=== PATIENT | male | born 1970 | race Two or more races ===

== ENCOUNTER 2020-12-28 09:28 | Emergency (ER) | payer MEDICAID, OTHER ==
[~2020-12-28] VITALS: Ht 172.7 cm; Wt 95.3 kg
--- NOTE | 2020-12-28 09:28 | NUR ---
PT BIB [facility] C/O GENERALIZED BODY PAIN S/P ROLLING OFF HIS BED THIS AM. PT IS AAOX4, NOT IN RESPIRATORY DISTRESS, V/S STABLE. KEPT RESTED AND COMFORTABLE. WILL CONTINUE TO MONITOR.
--- NOTE | 2020-12-28 09:34 | NUR ---
AT BEDSIDE FOR EVAL.
[2020-12-28] MEDS ORDERED: ACET-2605 PO (09:54)
[2020-12-28] MEDS ORDERED: AMIO200T5 PO (09:54)
[2020-12-28] MEDS ORDERED: PANT40TA2 PO (09:54)
[2020-12-28] MEDS ORDERED: LACT10SO3 PO (09:54)
[2020-12-28] MEDS ORDERED: ALLO100T PO (09:54)
[2020-12-28] MEDS ORDERED: MAGN400O6 PO (09:54)
[2020-12-28] MEDS ORDERED: NALO4SPR (09:54)
[2020-12-28] MEDS ORDERED: BUPR75TA21 PO (09:54)
[2020-12-28] MEDS ORDERED: ACET-868 PO (09:54)
[2020-12-28] MEDS ORDERED: FURO-145 PO (09:54)
[2020-12-28] MEDS ORDERED: ARIP5TAB10 PO (09:54)
[2020-12-28] MEDS ORDERED: DOCU-141 PO (09:54)
[2020-12-28] MEDS ORDERED: EPOE3000 SQ (09:54)
[2020-12-28] MEDS ORDERED: METH12VI SQ (09:54)
[2020-12-28] MEDS ORDERED: TRAM50TA2 PO (09:54)
[2020-12-28] MEDS ORDERED: SPIR25TA6 PO (09:54)
[2020-12-28] MEDS ORDERED: LORA-259 PO (09:54)
[2020-12-28] MEDS ORDERED: METO25TA20 PO (09:54)
[2020-12-28] MEDS ORDERED: ESCI10TA PO (09:54)
[2020-12-28] MEDS ORDERED: BISA5TAB10 PO (09:54)
[2020-12-28] MEDS ORDERED: SACU1TAB PO (09:54)
[2020-12-28 10:26] LABS: BASOPHILS # (AUTO) 0.1 K/uL (0.0-0.2); BASOPHILS % (AUTO) 1.2 % (0.0-2.0); EOSINOPHILS % (AUTO) 2.7 % (0.0-6.0); HEMATOCRIT 27 % (39-51); HEMOGLOBIN 8.9 g/dL (13.5-17.5); LYMPHOCYTES # (AUTO) 0.5 K/uL (0.8-4.8); LYMPHOCYTES % (AUTO) 6.6 % (20.0-44.0); MEAN CORPUSCULAR HGB CONC 33 g/dl (31.0-36.0); MEAN CORPUSCULAR VOLUME 95 fL (80-96); MONOCYTES # (AUTO) 0.3 K/uL (0.1-1.30); MONOCYTES % (AUTO) 4.4 % (2.0-12.0); NEUTROPHILS # (AUTO) 6.6 K/uL (1.8-8.9); NEUTROPHILS % (AUTO) 85.1 % (43.0-81.0); PLATELET COUNT (AUTO) 407 K/uL (150-450); RED BLOOD CELL COUNT(AUTO) 2.89 MIL/uL (4.5-6.0); WHITE BLOOD COUNT (AUTO) 7.8 K/uL (4.3-11.0)
[2020-12-28 10:35] LABS: CREATININE 1.9 mg/dL (0.6-1.3); POTASSIUM 5.1 mmol/L (3.5-5.1)
[2020-12-28 10:40] LABS: ALBUMIN 2.6 g/dL (3.4-5.0); BILIRUBIN,DIRECT 0.9 mg/dL (0.0-0.2); BILIRUBIN,TOTAL 1.1 mg/dL (0.2-1.0); TOTAL PROTEIN, SERUM 7.6 g/dL (6.4-8.2)
--- NOTE | 2020-12-28 11:02 | NUR ---
REPORT GIVEN TO JANA GUDINO OF [facility] AND [facility].
--- NOTE | 2020-12-28 11:11 | NUR ---
CALLED [facility]. [phone] FOR TRAMSPORT. ETA 30-45MIN [phone]
--- NOTE | 2020-12-28 11:24 | NUR ---
REPORT GIVEN TO EMT FOR PT TRANSFER TO [facility].
[2020-12-28 11:27] VITALS: BP 124/58
[2020-12-28 13:02] LABS: EOSINOPHILS % (MANUAL) 3 % (0-4); LYMPHOCYTES % (MANUAL) 6 % (16-48); MONOCYTES % (MANUAL) 1 % (0-11.0); NEUTROPHILS % (MANUAL) 90 (42-76)
== END 2020-12-28 11:27 ==
LOC: ER 09:35
DX: R51.9 Headache, unspecified (principal); J44.9 Chronic obstructive pulmonary disease, unspecified; Z88.6 Allergy status to analgesic agent; Z91.018 Allergy to other foods; Z91.013 Allergy to seafood; Z79.899 Other long term (current) drug therapy; W06.XXXA Fall from bed, initial encounter; Y93.89 Activity, other specified; Y92.89 Other specified places as the place of occurrence of the external cause; Y99.8 Other external cause status
CPT/HCPCS: 36415; 70450-TC; 71045-TC; 72170-TC; 80048-TC; 80076-TC; 85025-TC